=== PATIENT | female | born 1990 | race African-American/Black ===

== ENCOUNTER 2017-12-21 13:01 | Emergency (ER) | payer SELFPAY ==
[~2017-12-21] VITALS: Ht 160 cm; Wt 83.2 kg
[2017-12-21 13:12] VITALS: BP 133/77
[2017-12-21] MEDS ORDERED: CEPH-264 PO (13:32)
--- NOTE | 2017-12-21 13:33 | PHYS DOC ---
Past History Past Medical History: No Pertinent History Past Surgical History: No Surgical History Alcohol Use: None Drug Use: None Adult General Chief Complaint Chief Complaint: BREAST PROBLEM HPI HPI Patient is a 27-year-old female who presents for evaluation of a left-sided breast lesion. She first noticed this lesion about 2 months ago and states that it has been growing in size. She has a PCP at the [facility] but has not seen him since this lesion began. There is been no drainage, bleeding, or change to the appearance of the overlying skin. No lesions lesion is on the medial side of the left upper breast and it is somewhat tender depending on whether she is lying down or standing up. It does get worse when she is standing or sitting up. She is alert and oriented 4, calm, and appears to be in no distress at this time. Review of Systems Review of Systems Constitutional: Denies fever or chills [] Eyes: Denies change in visual acuity, redness, or eye pain [] HENT: Denies nasal congestion or sore throat [] Respiratory: Denies cough or shortness of breath [] Cardiovascular: No additional information not addressed in HPI [] GI: Denies abdominal pain, nausea, vomiting, bloody stools or diarrhea [] : Denies dysuria or hematuria [] Musculoskeletal: Denies back pain or joint pain [] Integument: Denies rash or skin lesions [] left breast lesion Neurologic: Denies headache, focal weakness or sensory changes [] Endocrine: Denies polyuria or polydipsia [] All other systems were reviewed and found to be within normal limits, except as documented in this note. Allergies Allergies Allergies Coded Allergies Type Severity Reaction Last Updated Verified No Known Drug Allergies 06/02/15 No Physical Exam Physical Exam Constitutional: Well developed, well nourished, no acute distress, non-toxic appearance. [] HENT: Normocephalic, atraumatic, bilateral external ears normal, oropharynx moist, no oral exudates, nose normal. [] Eyes: PERRLA, EOMI, conjunctiva normal, no discharge. [] Neck: Normal range of motion, no tenderness, supple, no stridor. [] Cardiovascular:Heart rate regular rhythm, no murmur [] Lungs & Thorax: Bilateral breath sounds clear to auscultation [] Abdomen: Bowel sounds normal, soft, no tenderness, no masses, no pulsatile masses. [] Skin: Warm, dry, no erythema, no rash. [] peat shredder tender present (Kacey Fraser ) for breast exam, there is a firm tender lesion to the left medial breast at the inferior insertion area of the breast, approx 1.5cm in length and oval, no erythema, no peau d'orange, no bleeding, no fluctuance Back: No tenderness, no CVA tenderness. [] Extremities: No tenderness, no cyanosis, no clubbing, ROM intact, no edema. [] Neurologic: Alert and oriented X 3, normal motor function, normal sensory function, no focal deficits noted. [] Psychologic: Affect normal, judgement normal, mood normal. [] EKG EKG [] Radiology/Procedures Radiology/Procedures [] Course & Med Decision Making Course & Med Decision Making Pertinent Labs and Imaging studies reviewed. (See chart for details) @1320 - Patient informed of this is early infection or abscess and much less likely to be a breast cancer. The pt will go home with a prescription for antibiotics. Advised patient to follow up with her primary care physician in the next 2-3 days. Advised that if antibiotics do not completely resolve this issue that she may need to have a mammogram. Dragon Disclaimer Dragon Disclaimer This electronic medical record was generated, in whole or in part, using a voice recognition dictation system. Departure Departure: Impression: Primary Impression: Breast lesion Disposition: HOME, SELF-CARE Condition: STABLE Referrals: PCP,NO (PCP) Patient Instructions: Breast Cyst, Breast Self-Exam, [id number], Breast Tenderness Additional Instructions: Take the antibiotics as prescribed. Return tot he ER for new or worsening symptoms. Although your breast lesion is likely an early infection, you still may need to have a mammogram to further evaluate it. For this reason follow up with your primary care doctor in the next 2-3 days. If antibiotics to not completely resolve the pain and swelling it is very important you notify your PCP. Return to the ER for new or worsening symptoms. Use warm compresses at home as discussed. Scripts Cephalexin (KEFLEX) 500 Mg Capsule 1 CAP PO TID, #30 CAP Prov: KRISTOPHER DOMINGO DO 12/21/17 KRISTOPHER DOMINGO DO Dec 21, 2017 13:33
== END 2017-12-21 13:42 | disposition home or self-care (01) ==
LOC: ER 13:01
DX: N64.89 Other specified disorders of breast (principal)
CPT/HCPCS: 99283

== ENCOUNTER 2019-07-14 11:49 | Emergency (ER) | payer SELFPAY ==
[~2019-07-14] VITALS: Ht 160 cm; Wt 83.2 kg
[~2019-07-14 11:49] MED LIST: CEPH-264 PO
[2019-07-14 12:05] VITALS: BP 126/84
--- NOTE | 2019-07-14 12:29 | PHYS DOC ---
Past History Past Medical History: No Pertinent History Past Surgical History: No Surgical History Alcohol Use: None Drug Use: None Adult General Chief Complaint Chief Complaint: FLU SYMPTOM HPI HPI 29-year-old female presents with aches, fatigue, vomiting, and diarrhea for the last 2 days. She does not believe she has had a fever. She has had a cough that tends to lead to her vomiting. Her vomiting has been blood-tinged. She is having 4-5 episodes of diarrhea per day. The fatigue is making it difficult to do any daily activities. She was exposed to someone with influenza recently. Review of Systems Review of Systems Constitutional: Fatigue, body aches. Denies fever or chills [] Eyes: Denies change in visual acuity, redness, or eye pain [] HENT: Denies nasal congestion or sore throat [] Respiratory: Denies cough or shortness of breath [] Cardiovascular: No additional information not addressed in HPI [] GI: Denies abdominal pain. Nausea, vomiting, diarrhea [] : Denies dysuria or hematuria [] Musculoskeletal: Denies back pain or joint pain [] Integument: Denies rash or skin lesions [] Neurologic: Denies headache, focal weakness or sensory changes [] Endocrine: Denies polyuria or polydipsia [] All other systems were reviewed and found to be within normal limits, except as documented in this note. Allergies Allergies Allergies Coded Allergies Type Severity Reaction Last Updated Verified No Known Drug Allergies 06/02/15 No Physical Exam Physical Exam Constitutional: Well developed, well nourished, no acute distress, non-toxic appearance. [] HENT: Normocephalic, atraumatic, bilateral external ears normal, oropharynx moist, no oral exudates, nose normal. [] Eyes: PERRLA, EOMI, conjunctiva normal, no discharge. [] Neck: Normal range of motion, no tenderness, supple, no stridor. [] Cardiovascular:Heart rate regular rhythm, no murmur [] Lungs & Thorax: Bilateral breath sounds clear to auscultation [] Abdomen: Bowel sounds normal, soft, no tenderness, no masses, no pulsatile masses. [] Skin: Warm, dry, no erythema, no rash. [] Back: No tenderness, no CVA tenderness. [] Extremities: No tenderness, no cyanosis, no clubbing, ROM intact, no edema. [] Neurologic: Alert and oriented X 3, normal motor function, normal sensory function, no focal deficits noted. [] Psychologic: Affect normal, judgement normal, mood tired. [] EKG EKG [] Radiology/Procedures Radiology/Procedures [] Course & Med Decision Making Course & Med Decision Making Pertinent Labs and Imaging studies reviewed. (See chart for details) The patient is positive for influenza A. I will discharge her with and help with vomiting and so that she can keep down fluids. We'll also discharge her with Tamiflu as she has only had symptoms for 48 hours. [] Dragon Disclaimer Dragon Disclaimer This electronic medical record was generated, in whole or in part, using a voice recognition dictation system. Departure Departure: Impression: Primary Impression: Influenza A Disposition: 01 HOME, SELF-CARE Condition: STABLE Referrals: PCP,NO (PCP) Patient Instructions: Influenza, Adult, [id number] Scripts Ondansetron (ONDANSETRON ODT) 4 Mg Tab.rapdis 1 TAB PO PRN Q6-8HRS PRN for VOMITING, #16 TAB Prov: ITZEL ARBOLEDA DO 07/14/19 Oseltamivir Phosphate (TAMIFLU) 75 Mg Capsule 1 CAP PO BID for influenza, #10 CAP Prov: ITZEL ARBOLEDA DO 07/14/19 ITZEL ARBOELDA DO Jul 14, 2019 12:29
[2019-07-14] MEDS ORDERED: LOPERAMIDE 2 MG CAPSULE PO ONE (12:30)
[2019-07-14 12:42] LABS: INFLUENZA A PATIENT POSITIVE (NEGATIVE); INFLUENZA B PATIENT NEGATIVE (NEGATIVE)
[2019-07-14] MEDS ORDERED: ONDA4TAB12 PO (12:55)
[2019-07-14] MEDS ORDERED: OSEL75CA PO (12:55)
== END 2019-07-14 13:08 | disposition home or self-care (01) ==
LOC: ER 11:49
DX: J10.1 Influenza due to other identified influenza virus with other respiratory manifestations (principal); R19.7 Diarrhea, unspecified
CPT/HCPCS: 87804; 99284